=== PATIENT | male | born 1985 | race African-American/Black ===

== ENCOUNTER 2018-10-28 21:23 | Emergency (ER) | payer OTHER ==
[~2018-10-28] VITALS: Ht 170.2 cm; Wt 56.7 kg
[2018-10-28 23:35] VITALS: BP 110/70; TEMP 98
== END 2018-10-28 23:37 | disposition home or self-care (01) ==
LOC: ED 21:23
DX: T78.40XA Allergy, unspecified, initial encounter (principal)
CPT/HCPCS: 96372; 99283; J1200; J2930